=== PATIENT | female | born 1985 | race Asian ===

== ENCOUNTER 2024-03-29 10:54 | Emergency (ER) | payer OTHER ==
[2024-03-29] MEDS ORDERED: IBUPROFEN 400 MG TABLET (FP) PO ONE (12:00)
[2024-03-29] MEDS ORDERED: LIDOCAINE 4% PATCH TP ONE (12:00)
[2024-03-29] MEDS ORDERED: CYCLOBENZAPRINE HCL 10 MG TABLET (FP) ONE (12:00)
[2024-03-29] MEDS: CYCLOBENZAPRINE HCL 10 MG TABLET (FP) PO ONE (12:04)
[2024-03-29] MEDS: IBUPROFEN 400 MG TABLET (FP) PO ONE (12:04)
[2024-03-29] MEDS: LIDOCAINE 5% TOPICAL PATCH TP ONE (12:04)
[2024-03-29 12:28] VITALS: BP 128/81; PULSE 96; RESP 20; TEMP 98.6; BMI 44.9
[2024-03-29] MEDS ORDERED: LIDOCAINE PATCH REMOVAL MC SCH (22:00)
== END 2024-03-29 12:31 | disposition home or self-care (01) ==
LOC: JERFT 10:54
DX: S39.012A Strain of muscle, fascia and tendon of lower back, initial encounter (principal); W50.0XXA Accidental hit or strike by another person, initial encounter
CPT/HCPCS: 99283-25

== ENCOUNTER 2025-03-27 13:04 | Emergency (ER) | payer OTHER ==
[2025-03-27 13:13] VITALS: BP 143/79; PULSE 79; RESP 18; TEMP 99.3; BMI 37.0
[2025-03-27] MEDS ORDERED: KETOROLAC TROMETHAMINE 30 MG/1 ML VIAL ONE (14:19)
[2025-03-27] MEDS ORDERED: ONDANSETRON 4 MG/2 ML VIAL ONE (14:19)
[2025-03-27] MEDS: SODIUM CHLORIDE 0.9% 1000 ML INFUS.BAG IV ONE (14:26)
[2025-03-27] MEDS: ONDANSETRON 4 MG/2 ML VIAL IVPUSH ONE (14:26)
[2025-03-27] MEDS: KETOROLAC TROMETHAMINE 30 MG/1 ML VIAL IVPUSH ONE (14:26)
[2025-03-27 14:54] LABS: MCHC 27.2 g/dl (32.2-35.5); MEAN CELL VOLUME 63.4 fl (79.4-94.8); MEAN PLT VOLUME 8.5 fl (9.4-12.3); RDW 22.7 % (12.1-16.8)
[2025-03-27 14:58] LABS: HCG,QUALITATIVE URINE Negative
[2025-03-27 14:59] LABS: EPI CELLS 26 /uL (0-25.1); HYALINE CASTS 3 /uL (0-3.1); URINE APPEARANCE TURBID; URINE BACTERIA 128 /uL (0-1359); URINE BILIRUBIN 1+ (NEGATIVE); URINE COLOR RED; URINE GLUCOSE (UA) NEGATIVE (NEGATIVE); URINE KETONE 3+ (NEGATIVE); URINE LEUK ESTERASE 2+ (NEGATIVE); URINE NITRITE NEGATIVE (NEGATIVE); URINE PROTEIN 3+ (NEGATIVE); URINE RBC 26409 /uL (0-23.9); URINE UROBILINOGEN 0.2 mg/dL (0.2-1.0); URINE WBC 1477 /uL (0-25.8)
[2025-03-27 15:21] LABS: GLUCOSE,RANDOM 164.0 mg/dL (74-106)
[2025-03-27 15:22] LABS: TOT PROT 8.3 g/dl (6.4-8.2)
[2025-03-27 15:23] LABS: CO2 17.0 mmol/L (21-32)
[2025-03-27 15:24] LABS: ALK PHOS 76.0 U/L (40-150)
[2025-03-27 15:27] LABS: CREATININE 0.52 mg/dL (0.55-1.3); SGOT/AST 22.0 U/L (5-34); SGPT/ALT 11.0 U/L (0-55)
[2025-03-27] MEDS ORDERED: CEFTRIAXONE 1 GM/50 ML BAG ONE (16:03)
[2025-03-27] MEDS: CEFTRIAXONE 1,000 MG in DEXTROSE 5%-WATER - 50 ML IVPB ONE (16:09)
== END 2025-03-27 16:42 | disposition home or self-care (01) ==
LOC: JER 13:04
PROC: 3E03329 Introduction of Other Anti-infective into Peripheral Vein, Percutaneous Approach (ICD-10-PCS; principal; 2025-03-27)
PROC: 3E0333Z Introduction of Anti-inflammatory into Peripheral Vein, Percutaneous Approach (ICD-10-PCS; 2025-03-27)
PROC: 3E033GC Introduction of Other Therapeutic Substance into Peripheral Vein, Percutaneous Approach (ICD-10-PCS; 2025-03-27)
DX: N30.01 Acute cystitis with hematuria (principal); M54.50 Low back pain, unspecified; R11.2 Nausea with vomiting, unspecified
CPT/HCPCS: 36415; 80053; 81003; 83690; 84703; 85025; 96365; 96375; 99284-25